=== PATIENT | male | born 1940 | race Caucasian/White ===

== ENCOUNTER 2017-02-25 15:47 | Inpatient (IN) | payer OTHER ==
[~2017-02-25] VITALS: Ht 185.4 cm; Wt 87.6 kg
--- NOTE | ~2017-02-25 | CNG ---
[facility] [place] [address] CYTO-NONGYN REPORT PROCEDURE Name: RUSLAN TERRELL Room #: 205-P ADM IN M.R.#: [id number] Admission: 02/25/17 Date of : 42 Discharge: Report #: [id number] Path Case #: [id number] CYTOPATHOLOGY REPORT COLLECTION DATE: 02/27/2017 RECEIVED DATE: 02/27/2017 SUBMITTING PHYS: Dr. Jamari Brady OTHER PHYS: CLINICAL HISTORY: SOA; CHF; feet swelling; low 02; Pleural Effusion SPECIMEN(S) RECEIVED: A.Pleural fluid * * * * * * * * * * * * FINAL DIAGNOSIS: A. Pleural fluid: - No malignant epithelial cells identified. Paucicellular specimen with rare mesothelial cells and occasional scattered lymphocytes identified. PATHOLOGIST: Nadya Amaro M.D. REPORT ELECTRONICALLY SIGNED BY: Nadya Amaro M.D. DATE/TIME: 02/28/2017 13:20 * * * * * * * * * * * * GROSS PATHOLOGY: A. Pleural fluid: The specimen is submitted unfixed, labeled "Dedrickgurindercaro Ruslan Christopher". Received by the Cytology Department is 10 mL of clear yellow fluid. One ThinPrep slide and a cell block were prepared. (mm 02.27.2017) DRY CHAIN OFFBEARER(S): Shanon Grimm, CT(ASCP), IAC INITIAL CPT CODE(S): A; 62380, 20551 Professional services performed by [facility] at [facility] [address], [place] [address] Technical services performed by [facility] at [address] [place] [address]., [address], [place] [address]. [facility] [address] [place] [address], [facility] [place] [address] [place], [place] [address] [place] [address] [place] [address] CYTO-NONGYN REPORT PROCEDURE Name: RUSLAN TERRELL Room #: 205-P ADM IN M.R.#: [id number] Admission: 02/25/17 Date of : 42 Discharge: Report #: [id number] Path Case #: [id number] PHONE: [phone] DIRECTOR: Santos Hester M.D. * * * END OF REPORT * * *
--- NOTE | ~2017-02-25 | D ---
[facility] [place] [address] DISCHARGE SUMMARY Name: ANGELIA TERRELL Room #: 205-P [facility] IN M.R.#: [id number] Admission: 02/25/17 Attend Phys: Jamari Brady MD Discharge: 03/03/17 Date of : 42 Report #: [id number] THIS REPORT FOR: //name// CC: Jamari Brady DATE OF SERVICE: 03/03/2017 DATE OF ADMISSION: 02/25/2017. DATE OF DISCHARGE: 03/03/2017. ADMIT DIAGNOSIS: Acute congestive heart failure. DISCHARGE DIAGNOSES: 1. Vqaqa-qz-gsuzozm congestive heart failure. 2. Ischemic cardiomyopathy. 3. Bilateral pulmonary infiltrates with loculated effusions, status post thoracentesis on multiple occasions. 4. Acute kidney injury with chronic kidney disease. 5. Diabetes mellitus type 2. 6. Paroxysmal atrial fibrillation. 7. Prior paroxysmal ventricular tachycardia with a biventricular implantable cardioverter-defibrillator device. 8. Chronic anemia. 9. Hypothyroidism. 10. History of colon cancer. HOSPITAL COURSE: The patient is a 76-year-old male who is new to me who has been admitted with increasing shortness of air. He is moving up from [place] and has been having these problems for a long time that have been worsening lately, however. He is admitted per consultation from cardiology and pulmonology. He had thoracentesis on multiple occasions to remove several liters of fluid from his lungs. He did improve with aeration with that. We adjusted his cardiac meds and diuretics. He did get a little bit dry, hence we backed off from the diuresis. After discussion with Dr. Briscoe, we decided not to continue with BARTOLO inhibitors as he must have had trouble with these in the past as he is hypotensive with that. DISCHARGE MEDICATIONS: See discharge med list. DISPOSITION: He will be discharged home on home O2. FOLLOWUP: He will see me in 3 days. DIET: He will have a low-sodium diet. [address] [address] DISCHARGE SUMMARY Name: ANGELIA TERRELL LUIS MIGUEL Room #: 205-P [facility] IN M.R.#: [id number] Admission: 02/25/17 Attend Phys: Jamari Brady MD Discharge: 03/03/17 Date of : 42 Report #: [id number] ACTIVITY: As tolerated. By: 0829 11 Jamari Brady MD /nt
--- NOTE | ~2017-02-25 | EKG ---
[address] [place] [address] ELECTROCARDIOGRAM REPORT Name: LESLIESOPHIAANGELIA DEAN Room #: 205-P ADM IN M.R.#: [id number] Admission: 02/25/17 Attend Phys: Jamari Brady MD Discharge: Date of : 42 Report #: [id number] THIS REPORT FOR: //name// [facility] ED Test Date: 2017-02-25 Test Time: 17:09:57 Pat Name: ANGELIA TERRELL Department: Room: 205 Gender: M Refrigerating Technician: MZOOK : 1940 Requested By: Aman Muller Order Number: [id number] MD: Toney Briscoe Measurements Intervals [place] Rate: 76 P: 120 AL: 151 QRS: 199 QRSD: 160 T: 6 QT: 463 QTc: 521 Interpretive Statements AV sequential biventricular pacing No further analysis attempted due to paced rhythm No previous ECG available for comparison Electronically Signed On 02-26-2017 8:47:29 CDT by Toney Briscoe [email or web address] <ELECTRONICALLY SIGNED> By: Toney Briscoe MD, [facility] 02/26/17 0847 1709 08 Toney Briscoe MD, FAC /EPI
--- NOTE | ~2017-02-25 | CNG ---
[facility] [place] [address] CYTO-NONGYN REPORT PROCEDURE Name: RUSLAN TERRELL Room #: 205-P [facility] IN M.R.#: [id number] Admission: 02/25/17 Date of : 42 Discharge: 03/03/17 Report #: [id number] Path Case #: [id number] CYTOPATHOLOGY REPORT COLLECTION DATE: 03/01/2017 RECEIVED DATE: 03/01/2017 SUBMITTING PHYS: Dr. Debora Styles OTHER PHYS: Dr. Jamari Brady CLINICAL HISTORY: SOA, feet swelling, Low O2 SAT'S. SPECIMEN(S) RECEIVED: A.Pleural fluid * * * * * * * * * * * * FINAL DIAGNOSIS: A. Pleural fluid: - No malignant cells identified. Rare mesothelial cells and many scattered lymphocytes identified. COMMENT: There are many scattered small lymphocytes identified. These do not appear histologically atypical; however, if a lymphoproliferative process is suspected, suggest flow studies. (SHA:csd; d/t: 03/04/2017) PATHOLOGIST: Cristian Blank M.D. REPORT ELECTRONICALLY SIGNED BY: Cristian Blank M.D. DATE/TIME: 03/04/2017 11:29 * * * * * * * * * * * * GROSS PATHOLOGY: A. Pleural fluid: The specimen is submitted unfixed, labeled "Ruslan Terrell". Received by the Cytology Department is 15 mL of cloudy yellow fluid. One ThinPrep slide and a cell block were prepared. (clt 4.) PATTERN CARRIER(S): PREETHI Mcduffie(ASCP) INITIAL CPT CODE(S): A; 55357, 91028 Professional services performed by [facility] at [facility] [address] [facility] , [place] [address] Technical services performed by [facility] at [address] [place] [address], [address], [place] [address]. [facility] [address] [place] [address] CYTO-NONGYN REPORT PROCEDURE Name: RUSLAN TERRELL Room #: 205-[facility] IN M.R.#: [id number] Admission: 02/25/17 Date of : 42 Discharge: 03/03/17 Report #: [id number] Path Case #: [id number] [facility] [address] [place] [address], [address] [place] [address] PHONE: [phone] DIRECTOR: Santos Hester M.D. * * * END OF REPORT * * *
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
--- NOTE | ~2017-02-25 | H ---
[facility] [place] [address] HISTORY AND PHYSICAL Name: ANGELIA TERRELL Room #: 205-P [facility] IN M.R.#: [id number] Admission: 02/25/17 Attend Phys: Jamari Brady MD Discharge: Date of : 42 Report #: [id number] THIS REPORT FOR: //name// CC: Jamari Brady DATE OF SERVICE: 02/26/2017 CHIEF COMPLAINT: Shortness of air. HISTORY OF PRESENT ILLNESS: The patient is a 76-year-old male, new to me, who presented with increasing shortness of breath for a week. He states that has been getting worse with activity and he is unable to lay flat. He does have a history of coronary artery disease and congestive heart failure that has been treated with thoracentesis and diuretics in the past. Most recently, he had a thoracentesis of over 2 liters. He states he has no new chest pain. PAST MEDICAL HISTORY: Significant for: 1. Congestive heart failure. 2. Coronary artery disease. 3. Cardiomyopathy. 4. Diabetes mellitus, non-insulin requiring. 5. He has an AICD. 6. He has a port in place for colorectal cancer. 7. Colorectal cancer 8. Hyperlipidemia. 9. Hypothyroidism. 10. BPH. MEDICATIONS: Lasix 80 mg a day and Coreg 3.125 mg b.i.d. ALLERGIES: CODEINE, CONTRAST, and DEMEROL. SOCIAL HISTORY: He does drink alcohol. He is a prior smoker. He lives independently. He lives in [place], but to [place] for frequently. REVIEW OF SYSTEMS: CONSTITUTIONAL: He is not aware of any fever or chills. HEENT: No headaches or visual changes. CHEST: He has the shortness of air, but no sputum production. CARDIAC: No chest pain. No palpation. GASTROINTESTINAL: No nausea, vomiting, diarrhea, or constipation. GENITOURINARY: No burning or frequency. EXTREMITIES: No new swelling or joint pain. SKIN: No rashes or wounds. NEUROLOGIC: No numbness or weakness. [facility] [address] [address] HISTORY AND PHYSICAL Name: ANGELIA TERRELL LUIS MIGUEL Room #: 205-P [facility] IN M.R.#: [id number] Admission: 02/25/17 Attend Phys: Jamari Brady MD Discharge: Date of : 42 Report #: [id number] PHYSICAL EXAMINATION: VITAL SIGNS: Blood pressure 108/74, pulse is 77, respiratory rate is 18, and O2 sat is 94% on 2 liters at the time of evaluation in the morning of 02/26. GENERAL: He is awake and alert, in no acute distress. HEENT: His mucous membranes are moist. NECK: Supple without adenopathy. Central venous pressure was increased to 10 cm. CHEST: Shows decreased breath sounds in the right, crackles in the left. CARDIOVASCULAR: He has a regular rate, regular rhythm, no S4. ABDOMEN: Soft, nondistended, nontender, no masses. Bowel sounds are active. EXTREMITIES: 3+ edema in both legs. Pulses are intact. NEUROLOGIC: Grossly motor and sensory. SKIN: No new rashes or wounds. He has sternotomy scars. LABORATORY DATA: EKG shows paced rhythm, rate of 76. Sodium 141, potassium 4.1, chloride 103, bicarb 32, BUN 20, creatinine 1.3, glucose 99, calcium 8.6. AST 18, ALT 16. Troponin less than 0.04. BNP 3242, total protein 7.3, albumin 2.8. WBCs 9.7, hemoglobin 10.0, hematocrit 29.6, platelet count 276, 82 segs, 1 band, 9 lymphs. Chest x-ray shows right side effusion and small and large left-sided effusion with basilar crackles. ASSESSMENT: 1. Congestive heart failure, acute on chronic systolic with pleural effusion. 2. Pleural effusion secondary to heart failure. 3. Coronary artery disease. 4. Diabetes mellitus. 5. History of colon cancer. PLAN: We will admit, start him on IV diuretics. Consult pulmonary and cardiology. Recommend thoracentesis for symptomatic relief. Place him on telemetry and monitor his electrolytes. <ELECTRONICALLY SIGNED> By: Jamari Brady MD 03/03/17 0844 0729 1000 Jamari Brady MD /nt
--- NOTE | ~2017-02-25 | 2DMMODE ---
[facility] [place] [address] 2 D/M-MODE ECHOCARDIOGRAM Name: ANGELIA TERRELL Room #: 205-P [facility] IN .R.#: [id number] Admission: 02/25/17 Attend Phys: Jamari Brady, Discharge: Date of : 42 Date of Service: 02/26/17 1721 Report #: [id number] THIS REPORT FOR: //name// APPROVED REPORT Study performed: 02/26/2017 12:19:25 EXAM: Comprehensive 2D, Doppler, and color-flow Echocardiogram Patient Location: Bedside Blood Pressure: 121/74 mmHg HR: 75 bpm Other Information Study Quality: Good Indications ICD: Diabetes CAD Remote aortic valve replacement with Bioprosthetic valve. CHF. 2D Dimensions LVEF(%): 26.95 (>50%) IVSd: 11.16 (7-11mm) LVOT Diam: 20.71 (18-24mm) LVDd: 56.26 mm PWd: 8.42 (7-11mm) Ascending Aorta: 26.18 mm LVDs: 49.12 (25-40mm) IVC: 14.00 mm Aortic Root: 30.28 mm Walker's LVEF: 26.95 % Volumes Left Atrial Volume (Systole) Single Plane 4CH: 84.49 mL Single Plane 2CH: 83.72 mL LA ESV Index: 43.00 mL/m2 Aortic Valve AoV Peak Phan.: 1.00 m/s AO Peak Gr.: 3.99 mmHg AO Mean Gr.: 2.08 mmHg LV Max P.17 mmHg LV Mean P.15 mmHg AO V2 VTI: 154.54 mm LV Max: 0.77 m/s MARLEY (VTI): 2.84 cm2 LV Mean: 0.50 m/s LV V1 VTI: 130.25 mm [facility] [place] [address] [address] 2 D/M-MODE ECHOCARDIOGRAM Name: ANGELIA TERRELL [place] Room #: 205-P [facility] IN .R.#: [id number] Admission: 02/25/17 Attend Phys: Jamari Brady, Discharge: Date of : 42 Date of Service: 02/26/17 1721 Report #: [id number] SV (LVOT): 43.84 mL Mitral Valve MV PHT: 35.32 ms MV E Max Phan.: 0.88 m/s E/A Ratio: 3.1 MV A Phan.: 0.28 m/s MV Decel. Time: 121.79 ms Tricuspid Valve TR Peak Phan.: 3.25 m/s RAP Estimate: 5.00 mmHg TR Peak Gr.: 42.20 mmHg Left Ventricle Left ventricle is borderline dilated. There is global hypokinesis of the left ventricle. There is akinesis in the posterior wall. There is akinesis in the inferior wall. There is normal left ventricular wall thickness. Left ventricular ejection fraction is moderately decreased. LVEF is 30-35%. Grade IV - fixed restrictive diastolic dysfunction. Right Ventricle The right ventricle is normal size. The right ventricular systolic function is normal. Atria Left atrium is dilated. Right atrium is dilated. A device lead is seen in the right atrium consistent with history. Aortic Valve The aortic valve is normal in structure. Bioprosthetic aortic valve is present. No aortic regurgitation is present. There is no aortic valvular stenosis. Mitral Valve The mitral valve is normal in structure. Trace mitral regurgitation. Tricuspid Valve The tricuspid valve is normal in structure. There is trace tricuspid regurgitation. The right atrial pressure is estimated at 5 mmHg. There is mild-moderate pulmonary hypertension. The estimated PAP was 47 mmHg. Pulmonic Valve The pulmonary valve is normal in structure. Trace pulmonic regurgitation. [facility] [address] [place] [address] 2 D/M-MODE ECHOCARDIOGRAM Name: ANGELIA TERRELL Room #: 205-P [facility] IN .R.#: [id number] Admission: 02/25/17 Attend Phys: Jamari Brady, Discharge: Date of : 42 Date of Service: 02/26/17 1721 Report #: [id number] Great Vessels The aortic root is normal in size. IVC is normal in size and collapses <50% with inspiration. Pericardium There is no pericardial effusion. <Conclusion> Left ventricle is borderline dilated. There is global hypokinesis of the left ventricle. There is akinesis in the posterior wall. There is akinesis in the inferior wall. LVEF is 30-35%. Left atrium is dilated. Right atrium is dilated. A device lead is seen in the right atrium consistent with history. Trace mitral regurgitation. There is trace tricuspid regurgitation. The right atrial pressure is estimated at 5 mmHg. There is mild-moderate pulmonary hypertension. The estimated PAP was 47 mmHg. Trace pulmonic regurgitation. <ELECTRONICALLY SIGNED> By: Jose Luis Ceja MD 02/26/17 172 20 20 Jose Luis Ceja MD /INF
[~2017-02-25 15:47] MED LIST: COREG3.125 MG PO; FLOMAX0.4 MG PO; GLUCOPHAGE XR500 MG PO; IRON325 PO; LASIX 40 MG TAB40 M2 PO; LEVOTHYROXIN0.112 M1 PO; LEVOTHYROXIN0.125 M1 PO; LIPITOR 20 MG T20 M1 PO; METFORMIN HCL500 MG PO; NITROGLYCERIN0.4 MG SUBLING; NORCO 5-325 TA1 EACH PO
[2017-02-25 16:07] VITALS: BP 108/74
[2017-02-25 17:56] LABS: HEMATOCRIT 29.6 % (42.0-52.0); MCH 27.4 pg (26.0-34.0); MCHC 33.8 g/dL (28.0-37.0); PLATELET COUNT 276 thou/uL (150-400); RBC 3.66 mil/uL (4.50-6.00); RDW 17.6 % (10.5-14.5); WBC 9.7 thou/uL (4.0-11.0)
[2017-02-25 17:58] LABS: MANUAL DIFF YES
[2017-02-25 18:02] LABS: ANION GAP 6 mmol/L (7-16); BUN 20 mg/dL (7-18); CALCIUM 8.6 mg/dL (8.5-10.1); CHLORIDE 103 mmol/L (98-107); CO2 32 mmol/L (21-32); CREATININE 1.3 mg/dL (0.7-1.3); GLUCOSE 99 mg/dL (74-106); POTASSIUM 4.1 mmol/L (3.5-5.1); SODIUM 141 mmol/L (136-145)
[2017-02-25 18:13] LABS: ALBUMIN 2.8 g/dL (3.4-5.0); ALKALINE PHOSPHATASE 70 U/L (46-116); NT-PRO BRAIN NAT PEPTIDE 3242 pg/mL (<300); SGOT 18 U/L (15-37); SGPT 16 U/L (30-65); TOTAL BILIRUBIN 0.5 mg/dL (<0.1-1.0); TOTAL PROTEIN 7.3 g/dL (6.4-8.2); TROPONIN-I < 0.04 ng/mL (<0.04-0.07)
[2017-02-25 18:26] LABS: ABSOLUTE NEUTROPHILS 8.1 thou/uL (1.4-8.2); TOTAL CELL COUNT 100
[2017-02-25 23:27] VITALS: BP 128/81
[2017-02-26 04:06] VITALS: BP 126/77
[2017-02-26 07:25] VITALS: BP 121/74
[2017-02-26 11:55] VITALS: BP 108/84
[2017-02-26 15:40] VITALS: BP 111/65
[2017-02-26 19:34] VITALS: BP 109/68
[2017-02-26 23:03] VITALS: BP 97/58
[2017-02-27 04:00] VITALS: BP 103/62
[2017-02-27 04:18] LABS: CALCIUM 8.3 mg/dL (8.5-10.1); CREATININE 1.7 mg/dL (0.7-1.3); POTASSIUM 4.5 mmol/L (3.5-5.1)
[2017-02-27 04:27] LABS: APTT 22.4 Seconds (24.5-32.8); PROTIME 10.5 Seconds (9.3-11.4)
[2017-02-27 08:25] VITALS: BP 109/67; BP 109/673
[2017-02-27 11:00] VITALS: BP 111/62
[2017-02-27 11:50] LABS: CLARITY HAZY; COLOR YELLOW; TOTAL VOLUME 50 mL
[2017-02-27 12:44] LABS: BF NUCLEATED CELLS 204; BF RBC 2408; MANUAL DIFF YES
[2017-02-27 14:27] LABS: BF NEUTROPHILS 1
[2017-02-27 14:28] LABS: BF MACROPHAGE 37
[2017-02-27 15:51] VITALS: BP 109/65
[2017-02-27 19:17] VITALS: BP 93/48
[2017-02-28 03:35] VITALS: BP 130/61
[2017-02-28 08:00] VITALS: BP 87/45
[2017-02-28 11:09] LABS: BODY FLUID ALBUMIN 1.6 g/dL (()); BODY FLUID AMYLASE 79 U/L (()); BODY FLUID GLUCOSE 133 mg/dL (()); BODY FLUID LDH 92 IU/L (())
[2017-02-28 20:06] VITALS: BP 84/54
[2017-02-28 23:31] VITALS: BP 96/60
[2017-03-01] VITALS (8 sets, daily range): BP systolic 92–146; BP diastolic 49–70
[2017-03-01 06:52] LABS: CALCIUM 8.2 mg/dL (8.5-10.1); POTASSIUM 4.6 mmol/L (3.5-5.1)
[2017-03-01 12:30] LABS: COLOR AMBER; TOTAL VOLUME 60 mL
[2017-03-01 12:31] LABS: CLARITY CLOUDY
[2017-03-01 13:11] LABS: BF NUCLEATED CELLS 948; BF RBC 5238
[2017-03-01 13:41] LABS: BF NEUTROPHILS 20
[2017-03-02 03:04] VITALS: BP 101/63
[2017-03-02 05:35] LABS: CALCIUM 8.6 mg/dL (8.5-10.1); CREATININE 1.9 mg/dL (0.7-1.3); POTASSIUM 4.8 mmol/L (3.5-5.1)
[2017-03-02 08:00] VITALS: BP 90/53
[2017-03-02 08:07] LABS: BODY FLUID ALBUMIN 1.7 g/dL (()); BODY FLUID AMYLASE 79 U/L (()); BODY FLUID GLUCOSE 127 mg/dL (()); BODY FLUID LDH 212 IU/L (()); BODY FLUID PROTEIN 3.2 g/dL (())
[2017-03-02] MEDS ORDERED: LISINOPRIL2.5 MG PO (08:45)
[2017-03-02] MEDS ORDERED: CARVEDILOL3.125 MG PO (08:45)
[2017-03-02] MEDS ORDERED: FLOMAX0.4 MG PO (08:45)
[2017-03-02] MEDS ORDERED: LEVOTHYROXIN0.125 M1 PO (08:46)
[2017-03-02 09:07] LABS: MANUAL DIFF YES
[2017-03-02 09:08] LABS: BF NUCLEATED CELLS 660; BF RBC 3869; CLARITY CLOUDY; COLOR ORANGE; TOTAL VOLUME 60 mL
[2017-03-02 11:06] LABS: BODY FLUID ALBUMIN 0.8 g/dL (()); BODY FLUID AMYLASE 41 U/L (()); BODY FLUID GLUCOSE 96 mg/dL (()); BODY FLUID LDH 83 IU/L (()); BODY FLUID PROTEIN 1.6 g/dL (())
[2017-03-02 12:00] VITALS: BP 121/65
[2017-03-02 13:59] LABS: BF NEUTROPHILS 0
[2017-03-02 14:00] LABS: BF COMMENTS 5; BF MACROPHAGE 0
[2017-03-02 15:54] VITALS: BP 82/50
[2017-03-02 19:05] VITALS: BP 95/56
[2017-03-03 00:10] VITALS: BP 98/63
[2017-03-03 04:33] VITALS: BP 78/43
[2017-03-03 07:40] VITALS: BP 87/52
[2017-03-03 11:17] LABS: HEMATOCRIT 27.1 % (42.0-52.0); HEMOGLOBIN 9.3 gm/dL (14.0-18.0); MCH 28.2 pg (26.0-34.0); MCHC 34.5 g/dL (28.0-37.0); MCV 81.8 fL (80.0-100.0); RBC 3.31 mil/uL (4.50-6.00); RDW 18.1 % (10.5-14.5); WBC 8.4 thou/uL (4.0-11.0)
[2017-03-03 11:20] VITALS: BP 98/60
[2017-03-03 11:32] LABS: CALCIUM 8.7 mg/dL (8.5-10.1); CREATININE 1.8 mg/dL (0.7-1.3); POTASSIUM 4.7 mmol/L (3.5-5.1)
[2017-03-03 13:07] VITALS: BP 146/58
== END 2017-03-03 15:50 | disposition home health service (06) | DRG 291 ==
LOC: ER 15:47 → 2N 18:33 → EROBS 18:33 → 2N 19:58
PROVIDERS: Family Medicine; Internal Medicine; Internal Medicine Pulmonary Disease; Physician Assistant
PROC: B5181ZA Fluoroscopy of Superior Vena Cava using Low Osmolar Contrast, Guidance (ICD-10-PCS; 2017-02-25)
PROC: 02HV33Z Insertion of Infusion Device into Superior Vena Cava, Percutaneous Approach (ICD-10-PCS; 2017-02-25)
PROC: 0W9B3ZZ Drainage of Left Pleural Cavity, Percutaneous Approach (ICD-10-PCS; principal; 2017-02-27)
PROC: 0W9B3ZZ Drainage of Left Pleural Cavity, Percutaneous Approach (ICD-10-PCS; 2017-03-02)
PROC: BB4BZZZ Ultrasonography of Pleura (ICD-10-PCS; 2017-03-02)
DX: I50.23 Acute on chronic systolic (congestive) heart failure (principal); J96.01 Acute respiratory failure with hypoxia; E43 Unspecified severe protein-calorie malnutrition; I47.2 Ventricular tachycardia; J81.1 Chronic pulmonary edema; N17.9 Acute kidney failure, unspecified; J90 Pleural effusion, not elsewhere classified; I48.0 Paroxysmal atrial fibrillation; E03.9 Hypothyroidism, unspecified; D53.9 Nutritional anemia, unspecified; I25.5 Ischemic cardiomyopathy; E11.22 Type 2 diabetes mellitus with diabetic chronic kidney disease; N18.9 Chronic kidney disease, unspecified; E78.5 Hyperlipidemia, unspecified; I25.10 Atherosclerotic heart disease of native coronary artery without angina pectoris; N40.0 Benign prostatic hyperplasia without lower urinary tract symptoms; J44.9 Chronic obstructive pulmonary disease, unspecified; Z95.1 Presence of aortocoronary bypass graft; Z95.810 Presence of automatic (implantable) cardiac defibrillator; Z90.49 Acquired absence of other specified parts of digestive tract; Z88.6 Allergy status to analgesic agent; Z91.041 Radiographic dye allergy status; Z95.2 Presence of prosthetic heart valve; Z85.038 Personal history of other malignant neoplasm of large intestine; Z87.891 Personal history of nicotine dependence; Z85.048 Personal history of other malignant neoplasm of rectum, rectosigmoid junction, and anus; Z79.899 Other long term (current) drug therapy; Z91.14 Patient's other noncompliance with medication regimen; Z92.21 Personal history of antineoplastic chemotherapy; Z23 Encounter for immunization; Z82.49 Family history of ischemic heart disease and other diseases of the circulatory system; Z68.25 Body mass index [BMI] 25.0-25.9, adult
CPT/HCPCS: 10194

== ENCOUNTER 2017-03-18 10:28 | Inpatient (IN) | payer OTHER ==
[~2017-03-18] VITALS: Ht 185.4 cm; Wt 83.1 kg
--- NOTE | ~2017-03-18 | HC ---
[facility] [place] [address] CONSULTATION Name: ANGELIA TERRELL Room #: 439-P ADM IN M.R.#: [id number] Admission: 03/18/17 Attend Phys: Jamari Brady MD Discharge: Date of : 42 Report #: [id number] THIS REPORT FOR: //name// CC: Jamari Brady MD REFERRING PHYSICIAN: Dr. Jamari Brady. REASON FOR REFERRAL: Dyspnea and recurrent pleural effusion. HISTORY OF PRESENT ILLNESS: The patient is a 76-year-old white male who presents to the Emergency Room with progressive dyspnea, lower extremity edema. Chest x-ray shows bilateral pleural effusion. A pulmonary consultation was requested. The patient has known ischemic cardiomyopathy. His ejection fraction in the past is said to be around 20%. He states that he has been dealing with heart failure for a number of years. About a year ago, he said he underwent a thoracentesis on the right side. He has not required another thoracentesis until 2 weeks ago when a thoracentesis was done on both of his lung. About a year ago, he was also treated for colon cancer. He underwent 6 months of anticoagulant therapy in [place], [place]. He states following treatment with chemotherapy for 6 months, he was cancer free. Otherwise, denies any fever, night sweats or chills, chest pain or productive cough. PAST MEDICAL HISTORY: Notable for history of tobacco use about 30 years, quitting in 1987, he has never been told he had a chronic lung disease, coronary artery disease with severe ischemic cardiomyopathy, ejection fraction is around 20%, coronary bypass surgery in 1987, diabetes mellitus type 2, status post AICD placement in 2011, status post bioprosthetic mitral valve replacement in 1967. PAST SURGICAL HISTORY: As mentioned above including cervical laminectomy, cholecystectomy, left hand surgery, prior back surgery. ALLERGIES: CODEINE, which causes pruritus, CONTRACT reactions not specified, TRAMADOL causes pruritus, MEPERIDINE causes vertigo. HOME MEDICATIONS: Include Flomax, Coreg, Synthroid, Lasix. FAMILY HISTORY: Notable for myocardial infarction in mother. SOCIAL HISTORY: He is single, but does have a fiancee who lives in town. He [facility] [address] [place] [address] CONSULTATION Name: ANGELIA TERRELL Room #: 439-P [facility]#: [id number] Admission: 03/18/17 Attend Phys: Jamari Brady MD Discharge: Date of : 41 Report #: [id number] has primarily lived in [place], [place]. Tobacco history: As mentioned above. He drinks socially. 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 REVIEW OF SYSTEMS: As mentioned above, otherwise 10-point system review negative. PHYSICAL EXAMINATION: GENERAL: He is awake, alert, in no apparent distress. VITAL SIGNS: Temperature is 98 degrees Fahrenheit, pulse is 71, respiratory rate is 20, blood pressure 134/70 mmHg, saturation 98%. HEENT: Unremarkable. NECK: Supple, without any lymphadenopathy or thyromegaly. CHEST: Breath sounds are good, but decreased in the bases. No rales or wheezes. CARDIOVASCULAR: Heart sounds are distant, but no obvious murmurs or gallop. Pulses are 2+/4+ bilaterally. ABDOMEN: Soft, nontender, no organomegaly or masses felt. GENITOURINARY: Deferred. RECTAL: Deferred. EXTREMITIES: There is no cyanosis or clubbing, but remarkable 2/4+ bilateral pretibial edema. LABORATORY DATA: Portable chest x-ray shows bilateral pleural effusion, felt to be mild bilaterally with atelectasis. CT chest from 2 weeks ago was also reviewed. The pleural fluid on the right appears to be mild and loculated. There is small pleural effusion on the left. Electrolytes: Sodium 140, potassium 3.6, chloride 105, CO2 of 29, BUN is 24, creatinine is 1.3. WBC 7900, hemoglobin is 8.4, platelets normal. IMPRESSION: 1. Recurrent bilateral pleural effusion in this 76-year-old white male. According to the patient, he has undergone two thoracentesis, first time over a year ago and the second one done [address] chest as mentioned above. Pleural fluid on the right shows some evidence of loculation, pleural fluid on the left appears to be free-flowing. The chest x-ray performed today shows mild pleural effusion. 2. Coronary artery disease with severe ischemic cardiomyopathy, chronic lower extremity edema. 3. Colon cancer diagnosed about a year ago, status post chemotherapy. 4. Status post bioprosthetic mitral valve replacement. 5. Chronic kidney disease, baseline creatinine appears to be around 1.4-1.9. RECOMMENDATION: We will hold off on thoracentesis for now. We will allow for medical management for his heart failure. If his pleural fluid worsens, will consider repeating thoracentesis. If his frequency of thoracentesis increases then one will consider placing a PleurX catheter. [facility] [address] [place] [address] CONSULTATION Name: ANGELIA TERRELL Room #: 439-P ADM IN M.R.#: [id number] Admission: 03/18/17 Attend Phys: Jamari Brady MD Discharge: Date of : 41 Report #: [id number] The patient is felt to have COPD. A baseline pulmonary function will be helpful. At this time, he does not have obvious evidence of exacerbation. We will use bronchodilators p.r.n. Thank you for this consultation. <ELECTRONICALLY SIGNED> By: Bakari Cabello MD 03/19/17 1308 1725 0211 Bakari Cabello MD /nt
--- NOTE | ~2017-03-18 | EKG ---
[address] [place] [address] ELECTROCARDIOGRAM REPORT Name: ANGELIA TERRELL Room #: 439-P ADM IN M.R.#: [id number] Admission: 03/18/17 Attend Phys: Jamari Brady MD Discharge: Date of : 41 Report #: [id number] THIS REPORT FOR: //name// 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 03/19/17 0854 1053 1053 Toney Briscoe MD, [facility] /EPI
--- NOTE | ~2017-03-18 | H ---
[facility] [place] [address] HISTORY AND PHYSICAL Name: ANGELIA TERRELL Room #: 439-P ADM IN M.R.#: [id number] Admission: 03/18/17 Attend Phys: Jamari Brady MD Discharge: Date of : 41 Report #: [id number] THIS REPORT FOR: //name// CC: Jamari Brady DATE OF SERVICE: 03/18/2017 CHIEF COMPLAINT: Increasing dyspnea. HISTORY OF PRESENT ILLNESS: The patient is a 76-year-old male, recently started seeing me, who reports has been having increasing shortness of breath for the past several days. He was just hospitalized about 2 weeks ago for CHF and pleural effusions and was treated with thoracentesis on multiple occasions and diuresis. He states he did well, when I saw him in the clinic last week, he was doing well. Within the last few days, he started having some increasing shortness of air. He cannot lay flat. He cannot walk very long. He does use oxygen at home. He states he has not had any fevers or chills. No changes in his diet. No changes in his medicines. He cannot explain why he is more short of breath. He also has more swelling. PAST MEDICAL HISTORY: Significant for: 1. Congestive heart failure with cardiomyopathy, with EF of 20%. 2. Coronary artery disease, bypass in 1987. 3. AICD in 2011. 4. Non-insulin dependent diabetes mellitus. 5. Chronic obstructive pulmonary disease with prior smoking. 6. BPH. 7. Hypothyroidism. MEDICATIONS: Tamsulosin 0.4 mg a day, Coreg 3.125 mg b.i.d., Synthroid 125 mcg a day. ALLERGIES: CODEINE, CONTRAST DYE, and TRAMADOL. SOCIAL HISTORY: He is a prior smoker, drinks alcohol occasionally. No recreational drugs. REVIEW OF SYSTEMS: CONSTITUTIONAL: No fevers or chills. HEENT: No headaches or visual changes. CHEST: Shortness of air as above. No chest pain, no cough or sputum production. GASTROINTESTINAL: No nausea, vomiting, diarrhea, or constipation. GENITOURINARY: No burning or frequency. EXTREMITIES: He does have swelling. No new joint pain. SKIN: No new rashes or wounds. [address] [address] HISTORY AND PHYSICAL Name: ANGELIA TERRELL LUIS MIGUEL Room #: 439-P ADM IN M.R.#: [id number] Admission: 03/18/17 Attend Phys: Jamari Brady MD Discharge: Date of : 41 Report #: [id number] NEUROLOGIC: No new numbness or weakness. PHYSICAL EXAMINATION: VITAL SIGNS: Blood pressure 111/56, pulse is 89, respiratory rate is 18, O2 sats 80% on 3 liters. GENERAL: The patient is awake, alert, and very pleasant male, and very conversive, does not appear short of breath. HEENT: His mucous membranes are moist. NECK: Supple with increased central venous pressure of 12 cm of water. There are no bruits, no adenopathy, or no thyromegaly. CHEST: Shows decreased breath sounds in the left and crackles on the right. CARDIOVASCULAR: He has a regular rhythm with no murmur, no S4. ABDOMEN: Soft, nondistended, nontender, and no masses. Bowel sounds are active. EXTREMITIES: Show 3+ edema bilaterally. Pulses are intact. Cap refill was less than 2 seconds. There was no wounds or rashes. He has no focal numbness or weakness. EKG shows paced rhythm of 66. LABORATORY DATA: Sodium of 140, potassium of 3.6, chloride of 105, bicarbonate 29, BUN 24, creatinine 1.3, glucose 127, calcium 7.9. Troponin less than 0.04. BNP 5527. WBC 7.9, hemoglobin 8.4, hematocrit 24.0, platelet count 263. 77 segs, 11 lymphs. Chest x-ray shows lower lobe atelectasis and effusion. ASSESSMENT: 1. Congestive heart failure, acute systolic on chronic. 2. Pleural effusion. 3. Chronic obstructive pulmonary disease. 4. Cardiomyopathy. PLAN: We will admit. Give IV Lasix. Consult Cardiology. Consult pulmonary for the effusion thoracentesis. His creatinine is 1.3, and should tolerate diuresis at this time. I do not see any source of infection, has been triggered here. I do not think he has had any ischemia. His troponin was normal. I am not sure, if this has been dietary or medicine indiscretion, but we will try to figure it out more as we progress. This just may be a simple matter of bad cardiac output. By: [id number] 1439 Jamari Brady MD /nt
[2017-03-18 10:28] VITALS: BP 111/56
[~2017-03-18 10:28] MED LIST changes: +CARVEDILOL3.125 MG PO; +LISINOPRIL2.5 MG PO
[2017-03-18] MEDS ORDERED: LASIX 40 MG TAB40 M2 PO (10:37)
[2017-03-18 11:13] LABS: ABSOLUTE NEUTROPHILS 6.1 thou/uL (1.4-8.2); BASOPHILS 0.8 % (0.0-2.0); EOSINOPHILS 3.7 % (0.0-3.0); HEMOGLOBIN 8.4 gm/dL (14.0-18.0); LYMPHOCYTES 11.1 % (24.0-44.0); MCH 27.9 pg (26.0-34.0); MCHC 34.8 g/dL (28.0-37.0); MCV 80.1 fL (80.0-100.0); MONOCYTES 7.1 % (1.0-8.0); PLATELET COUNT 263 thou/uL (150-400); POLYS 77.3 % (36.0-66.0); RDW 17.5 % (10.5-14.5); WBC 7.9 thou/uL (4.0-11.0)
[2017-03-18 11:14] LABS: MANUAL DIFF NO
[2017-03-18 11:21] LABS: ANION GAP 6 mmol/L (7-16); BUN 24 mg/dL (7-18); CALCIUM 7.9 mg/dL (8.5-10.1); CHLORIDE 105 mmol/L (98-107); CO2 29 mmol/L (21-32); CREATININE 1.3 mg/dL (0.7-1.3); GLUCOSE 127 mg/dL (74-106); POTASSIUM 3.6 mmol/L (3.5-5.1); SODIUM 140 mmol/L (136-145)
[2017-03-18 11:34] LABS: NT-PRO BRAIN NAT PEPTIDE 5527 pg/mL (<300); TROPONIN-I < 0.04 ng/mL (<0.04-0.07)
[2017-03-18 13:07] LABS: % SATURATION 25 % (20-39); IRON 60 ug/dL (65-175); TIBC 244 ug/dL (250-450); UIBC 184 ug/dL
[2017-03-18 13:10] VITALS: BP 134/71
[2017-03-18 13:50] VITALS: BP 113/67
[2017-03-18 13:58] LABS: URINE BILIRUBIN NEGATIVE (Negative); URINE BLOOD TRACE (Negative); URINE COLOR YELLOW; URINE GLUCOSE-RANDOM* NEGATIVE (Negative); URINE KETONES NEGATIVE (Negative); URINE LEUKOCYTES-REFLEX NEGATIVE (Negative); URINE PROTEIN (DIPSTICK) 1+ (Negative); URINE UROBILINOGEN 0.2 E.U./dl (0.2-1.0)
[2017-03-18 14:10] LABS: CASTS None Seen /LPF (None Seen); CRYSTALS None Seen /LPF (None Seen); SQUAMOUS None Seen /LPF (0-3); URINE RBC 0-2 Rare /HPF (0-2); URINE WBC-REFLEX None Seen /HPF (0-5)
[2017-03-18 16:00] VITALS: BP 134/71
[2017-03-18 20:00] VITALS: BP 119/66
[2017-03-19 00:45] VITALS: BP 94/48
[2017-03-19 04:10] VITALS: BP 104/56
[2017-03-19 05:47] LABS: HEMOGLOBIN 8.3 gm/dL (14.0-18.0); MCH 27.9 pg (26.0-34.0); MCHC 34.6 g/dL (28.0-37.0); MCV 80.7 fL (80.0-100.0); RBC 2.97 mil/uL (4.50-6.00); WBC 7.1 thou/uL (4.0-11.0)
[2017-03-19 06:04] LABS: CALCIUM 8.3 mg/dL (8.5-10.1); CREATININE 1.4 mg/dL (0.7-1.3)
[2017-03-19 06:29] LABS: POTASSIUM 4.9 mmol/L (3.5-5.1)
[2017-03-19 07:32] VITALS: BP 116/63
[2017-03-19 12:18] VITALS: BP 104/54
[2017-03-19 15:54] VITALS: BP 91/45
[2017-03-19 19:26] VITALS: BP 102/51
[2017-03-20 03:49] VITALS: BP 114/55
[2017-03-20 05:43] LABS: HEMATOCRIT 24.1 % (42.0-52.0); HEMOGLOBIN 8.4 gm/dL (14.0-18.0); MCH 27.7 pg (26.0-34.0); MCHC 34.7 g/dL (28.0-37.0); RBC 3.01 mil/uL (4.50-6.00); RDW 17.9 % (10.5-14.5); WBC 6.4 thou/uL (4.0-11.0)
[2017-03-20 05:59] LABS: CALCIUM 8.1 mg/dL (8.5-10.1); CREATININE 1.5 mg/dL (0.7-1.3); POTASSIUM 4.3 mmol/L (3.5-5.1)
[2017-03-20] MEDS ORDERED: METOLAZONE 2.52.5 M1 PO (08:03)
[2017-03-20] MEDS ORDERED: LASIX 80 MG TAB80 MG PO (08:04)
[2017-03-20 08:12] VITALS: BP 114/62
[2017-03-20] MEDS ORDERED: ASPIR 8181 MG PO (08:49)
[2017-03-20 09:23] VITALS: BP 114/62
== END 2017-03-20 10:46 | disposition home or self-care (01) | DRG 291 ==
LOC: ER 10:28 → 4S 12:44 → EROBS 12:44 → 4S 13:52
PROVIDERS: Family Medicine; Nurse Practitioner Family
DX: I50.23 Acute on chronic systolic (congestive) heart failure (principal); J96.20 Acute and chronic respiratory failure, unspecified whether with hypoxia or hypercapnia; J90 Pleural effusion, not elsewhere classified; I47.2 Ventricular tachycardia; I25.5 Ischemic cardiomyopathy; I25.10 Atherosclerotic heart disease of native coronary artery without angina pectoris; N40.0 Benign prostatic hyperplasia without lower urinary tract symptoms; E03.9 Hypothyroidism, unspecified; E11.22 Type 2 diabetes mellitus with diabetic chronic kidney disease; N18.9 Chronic kidney disease, unspecified; J44.9 Chronic obstructive pulmonary disease, unspecified; D50.9 Iron deficiency anemia, unspecified; I48.0 Paroxysmal atrial fibrillation; I27.2 Other secondary pulmonary hypertension; Z79.82 Long term (current) use of aspirin; Z95.810 Presence of automatic (implantable) cardiac defibrillator; Z90.49 Acquired absence of other specified parts of digestive tract; Z95.1 Presence of aortocoronary bypass graft; Z88.6 Allergy status to analgesic agent; Z91.041 Radiographic dye allergy status; Z87.891 Personal history of nicotine dependence; Z85.038 Personal history of other malignant neoplasm of large intestine; Z95.2 Presence of prosthetic heart valve; Z82.49 Family history of ischemic heart disease and other diseases of the circulatory system; Z79.899 Other long term (current) drug therapy
CPT/HCPCS: 10100; 10195

== ENCOUNTER → 2017-07-26 | Outpatient (CLI) | payer OTHER ==
[~2017-07-26] VITALS: Ht 185.4 cm; Wt 85.7 kg
[~2017-07-26] MED LIST changes: +ALEVE220 MG PO; +ASPIR 8181 MG PO; +LASIX 80 MG TAB80 MG PO; +METOLAZONE 2.52.5 M1 PO; +NORCO 10-325 T1 EACH PO; +PROSCAR 5MG TABL5 MG PO; +PROTONIX40 M1 PO
--- NOTE | ~2017-07-26 | HPC ---
[facility] [address] [place] [address] PAIN MANAGEMENT CONSULTATION Name: ANGELIA TERRELL [facility] [id number] Admission: 07/26/17 Attend Phys: Jose Manuel Gabriel DO Discharge: Date of : 41 Report #: [id number] THIS REPORT FOR: //name// CC: Jamari Gabriel The patient is a 77-year-old gentleman seen in consultation at the request of Dr. Brady for evaluation of pain in left hip, posterior thigh and lateral calf to foot. The patient notes pain has been present for the past 2-3 months. He uses a cane intermittently to assist with ambulation. He has subjective weakness and paresthesia down to the foot. Denies bowel or bladder continence changes. Notes Aleve and hydrocodone "take the edge off." Notes pain is exacerbated with any and all activity. Describes continuous, steady, constant, burning, shooting, pounding, sharp, stabbing pain, rates anywhere from 1 to 10 on a VAS, averaging his pain a 9 on a VAS today. REVIEW OF SYSTEMS: Complete review of systems is attached to the chart and was gone over with the patient. He is unclear on his marital status, though he is seen in the company of a long-term significant other. Does not drink alcohol to excess. Does not currently use tobacco products. History of cjw-hrsvuuo-amaopsuws diabetes, on no medication for same. History of mitral valve replacement in 1967, coronary artery bypass graft surgery in 1987. COPD requiring O2 for the past 1-2 years. Hypothyroid for which he uses levothyroxine. Gastroesophageal reflux treated with pantoprazole. History of colon cancer, status post colon resection in 2014, status post 6 months of chemotherapy. Benign prostatic hypertrophy for which he uses tamsulosin. Does have some chronic renal insufficiency. BUN and creatinine are 36 and 1.6 respectively yielding an eGFR of 42. Surgery includes the aforementioned mitral valve replacement and coronary artery bypass graft surgery. Colon resection, cholecystectomy, and he did have back surgery in 1987 for axial back pain with significant improvement of symptoms. The patient is retired for 3 years. Pain impact score, however, is quite high, averaging 60/70. PHYSICAL EXAMINATION: Reveals a 6 feet 1 inch, 186-pound gentleman, BMI is 24.9 kg/m2. Blood pressure is 115/68, pulse 83, respirations 16. Cranial nerves 2-12 are grossly intact. Pupils are equal and reactive to light and accommodation. Extraocular muscles are intact. He is alert and oriented to person, place and time, judged to be a reasonable historian. Heart is regular and rhythmical with a subtle murmur. He is oxygen dependent. Lung sounds are distant. Has thoracic kyphosis, markedly antalgic gait, using a cane. Abdominal exam is unremarkable, diffuse tenderness across the low back. Left leg shows significant decreased strength in all muscle groups tested. Right leg is a little stronger, perhaps 4/5; left leg is 3/5. Grossly positive straight [facility] [address] [place] [address] PAIN MANAGEMENT CONSULTATION Name: ANGELIA TERRELL Room #: REG CLDebbi Bach#: [id number] Admission: 07/26/17 Attend Phys: Jose Manuel Gabriel DO Discharge: Date of : 41 Report #: [id number] leg raise at 30 degrees on the left. ASSESSMENT: Symptomatic lumbar radiculopathy with a left L4 radicular pain pattern in a gentleman intolerant of nonsteroidal anti-inflammatory agents due to chronic renal insufficiency. Status post lumbar decompressive laminectomy. Has failed conservative therapy for the last 2-3 months. RECOMMENDATION: Left L4-L5 transforaminal epidural injection today, follow up in 3-4 weeks for reevaluation. If symptoms are not significantly improved, we will need MRI of the lumbar spine, typically status post decompressive laminectomy, we do this with and without contrast; however, given eGFR measured at 42, contrast may well be contraindicated. Thank you for allowing me to participate in the patient's care. I will keep you abreast of his progress. PROCEDURE: Transforaminal epidural injection under fluoroscopy. PROCEDURE NOTE: After both written and informed consent was obtained including risk of spinal cord damage, infection, increased pain and paralysis, the patient agreed to proceed. The patient was taken to the fluoroscopy suite, placed in a prone position with appropriate abdominal bolstering. After sterile prep with ChloraPrep and sterile drape, a skin wheal with 1% Xylocaine was raised. A 22 gauge 4-1/2 inch epidural Tuohy needle was inserted. From an oblique approach into the posterior-superior aspect of the left L4-L5 neural foramen with continuous pressure on the glass syringe plunger for loss of resistance. Glass syringe was filled with 2 cc of 0.1 Xylocaine. The glass loss of resistance syringe was removed. A low volume extension tubing was connected, negative aspiration was accomplished for cerebrospinal fluid or blood. 1 mL of Omnipaque was injected which showed spread both within the epidural space and laterally along the nerve root. This was followed with 80 mg of triamcinolone plus 1 mL of 1.5% preservative-free Xylocaine. Needle was partially withdrawn, 0.5 mL of Xylocaine was injected to clear the needle and the needle was removed. The area was cleansed, band-aid was applied. The patient was allowed to ambulate to the recovery room, discharged in good and stable condition. By: 1232 2116 Jose Manuel Gabriel DO /nt
[2017-07-26 13:32] VITALS: BP 115/68
== END ==
LOC: PAIN 12:28
DX: M54.16 Radiculopathy, lumbar region (principal); N18.9 Chronic kidney disease, unspecified; I10 Essential (primary) hypertension; I50.9 Heart failure, unspecified; Z91.041 Radiographic dye allergy status; Z88.5 Allergy status to narcotic agent; Z88.8 Allergy status to other drugs, medicaments and biological substances; Z86.2 Personal history of diseases of the blood and blood-forming organs and certain disorders involving the immune mechanism; Z79.899 Other long term (current) drug therapy; Z98.890 Other specified postprocedural states

== ENCOUNTER → 2017-08-07 | Outpatient (CLI) | payer OTHER ==
[~2017-08-07] VITALS: Ht 185.4 cm; Wt 84.4 kg
[~2017-08-07] MED LIST changes: +TYLENOL325 MG PO
--- NOTE | ~2017-08-07 | P ---
[facility] [place] [address] PROCEDURE REPORT Name: XANDERANGELIA BOLANOS [facility] [id number] Admission: 08/07/17 Attend Phys: Vinicius Orr Discharge: Date of : 41 Report #: [id number] THIS REPORT FOR: //name// CC: Vinicius Brady MD DATE OF SERVICE: 08/07/2017 PROCEDURE PERFORMED: Colonoscopy with biopsies. HISTORY OF PRESENT ILLNESS: The patient is a 77-year-old male with a history of colon cancer diagnosed apparently 2 years ago, status post resection. He also underwent chemotherapy. He denies any symptoms at this time. Plan is for repeat colonoscopy. DESCRIPTION OF PROCEDURE: The risks and benefits of the procedure were explained to the patient, those risks including but not limited to bleeding, perforation, the risk of sedation. He understood these risks and gave informed consent. Sedation was given using propofol per anesthesia. Next, a digital rectal exam was initially performed, which was normal. Next using a standard Fujinon colonoscope, the scope was placed in the patient's anus and advanced under direct vision into the right colon, at which point surgical anastomosis was noted. This was well healed and widely patent. I was able to advance the scope into the terminal ileum, which was normal. In the remaining ascending colon, a single 4-mm sessile polyp was noted, this was removed with cold forceps. The transverse colon was normal, descending colon normal. A few small scattered diverticula were noted in the sigmoid colon, two 3 mm sessile polyps also noted in the sigmoid colon, both removed with cold forceps. The rectal mucosa was normal. On retroflexion, no abnormalities were noted. The scope was then withdrawn and the procedure terminated. The patient tolerated the procedure well. IMPRESSION: 1. Three small colonic polyps. 2. Surgical anastomosis consistent with right hemicolectomy. 3. A few small scattered diverticula in the sigmoid colon. RECOMMENDATIONS: 1. Await biopsy results. 2. Repeat colonoscopy in [address] [address] PROCEDURE REPORT Name: ANGELIA TERRELL Room #: REG WHITNEY Bach#: [id number] Admission: 08/07/17 Attend Phys: Vinicius Orr Discharge: Date of : 41 Report #: [id number] Thank you for allowing me to participate in his care. <ELECTRONICALLY SIGNED> By: Vinicius Farrell MD 08/09/17 1151 0851 0859 Vinicius Farrell MD /nt
--- NOTE | ~2017-08-07 | S ---
[facility] [place] [address] SURGICAL PATH RPT PROCEDURE Name: RUSLAN TERRELL LUIS MIGUEL Room #: REG [facility].#: [id number] Admission: 08/07/17 Date of : 41 Discharge: Report #: [id number] Path Case #: [id number] PATHOLOGY REPORT COLLECTION DATE: 08/07/2017 RECEIVED DATE: 08/08/2017 SUBMITTING PHYS: Dr. Vinicius Farrell OTHER PHYS: Dr. Jamari Brady SPECIMEN(S) RECEIVED: A.Bx of polyp at ascending colon B.Bx at sigmoid colon x2 * * * * * * * * * * * * FINAL DIAGNOSIS: A. Colon, ascending, biopsy: - Tubular adenoma. - Negative for high grade dysplasia. B. Colon, sigmoid, biopsy: - Fragments of hyperplastic polyp. PATHOLOGIST: Ras Alfaro M.D. REPORT ELECTRONICALLY SIGNED BY: Ras Alfaro M.D. DATE/TIME: 08/09/2017 10:56 * * * * * * * * * * * * GROSS PATHOLOGY: A. Received in formalin labeled "Ruslan Gatito, polyp at ascending colon," is a segment of barker soft tissue measuring 0.4 cm in maximum dimension. The specimen is submitted entirely in cassette A1. B. Received in formalin labeled "Ruslan Dedrickregina, BX at sigmoid 2," are 4 segments of barker soft tissue measuring 1.4 x 0.2 x 0.2 cm in aggregate dimensions and ranging from 0.3 to 0.3 cm in maximum dimension. The specimen is submitted entirely in cassette B1. (TSD; 08/08/2017) CLINICAL HISTORY: Pre-OP DX: Hx of colon cancer Post-OP DX: Colon polyps, diverticulosis INITIAL CPT CODE(S): A; 11760 B; 25058 [facility] [address] [place] [address] SURGICAL PATH RPT PROCEDURE Name: RUSLAN TERRELL Room #: REG CL Isreal#: [id number] Admission: 08/07/17 Date of : 41 Discharge: Report #: [id number] Path Case #: [id number] [address] [facility] [place] [address] Technical [facility] performed by [facility] at [address] [place] [address], [facility] [address] [address]. [place] [address] PHONE: [phone] DIRECTOR: Santos Hester M.D. * * * END OF REPORT * * *
== END | disposition home or self-care (01) ==
LOC: GI 07:20
DX: Z08 Encounter for follow-up examination after completed treatment for malignant neoplasm (principal); Z87.19 Personal history of other diseases of the digestive system; D12.2 Benign neoplasm of ascending colon; D12.5 Benign neoplasm of sigmoid colon; K57.30 Diverticulosis of large intestine without perforation or abscess without bleeding; J44.9 Chronic obstructive pulmonary disease, unspecified; J43.9 Emphysema, unspecified; I10 Essential (primary) hypertension; Z95.1 Presence of aortocoronary bypass graft; K21.9 Gastro-esophageal reflux disease without esophagitis; E03.9 Hypothyroidism, unspecified; I48.91 Unspecified atrial fibrillation
CPT/HCPCS: 62110; 62900

== ENCOUNTER → 2017-08-22 | Outpatient (CLI) | payer OTHER ==
[~2017-08-22] VITALS: Ht 185.4 cm; Wt 85.8 kg
--- NOTE | ~2017-08-22 | HPC ---
[facility] [place] [address] PAIN MANAGEMENT CONSULTATION Name: JUAN CDIANNEANGELIA LUIS MIGUEL [facility] [id number] Admission: 08/22/17 Attend Phys: Jose Manuel Gabriel DO Discharge: Date of : 41 Report #: [id number] THIS REPORT FOR: //name// CC: Jamari Gabriel The patient is a 77-year-old gentleman, prior seen 07/26/2017 in consultation. The patient has symptomatic lumbar radiculopathy, myofascial pain, axial back pain, left low buttock and leg pain. The patient was given a left L3-L4 transforaminal epidural injection. He returns to pain clinic today noting that injection afforded 80% relief, but only for 1 day. Pain recurred, he rates it a 5 on VAS, burning, tingling, sharp pain exacerbated with walking and standing. Pain is actually fairly point tender in the left gluteal area, piriformis muscle, pain is exacerbated with standing; does experience occasional radicular pain down to the foot (lancinating electric "bolt"). PHYSICAL EXAMINATION: Shows a 77-year-old gentleman, BMI is 25 kg/m2. Vital signs are stable. The patient does have chronic renal issues with an EGFR of 42. Positive straight leg raise on the left with pain exacerbated with piriformis contraction and point tenderness over the gluteus charly and piriformis. ASSESSMENT: Lumbar radiculopathy, component of myofascial pain with piriformis muscle involvement piriformis syndrome. RECOMMENDATION: 1. Piriformis injection under fluoroscopy today. 2. Referral to physical therapy for left piriformis and gluteus myofascial mediated pain, request for home exercise regimen for stretch, relaxation of left gluteus and piriformis muscles. Follow up in 3 weeks for reevaluation. PROCEDURE NOTE: Left piriformis injection under fluoroscopy. PROCEDURE: After written informed consent was obtained, the patient was taken to the fluoroscopy suite and placed in prone position. After sterile prep and drape, skin wheal was raised. A 22-gauge stylet needle was placed to contact the inferior aspect of the left SI joint. Needle was then withdrawn, redirected inferior and placed approximately 1 cm deeper. Negative aspiration was accomplished. 1 mL of Omnipaque was injected, which showed spread within of the piriformis muscle, was followed with 40 mg triamcinolone plus 4 mL of 0.5% preservative-free bupivacaine. Needle was removed, the area was cleansed, Band-Aids applied. The patient was monitored for an appropriate period of time, discharged in good and stable condition. <ELECTRONICALLY SIGNED> By: Jose Manuel Gabriel DO 08/26/17 0840 1701 1627 Jose Manuel Gabriel DO /nt
[2017-08-22 14:28] VITALS: BP 94/62
== END | disposition home or self-care (01) ==
LOC: PAIN 08-09 07:52
DX: G57.02 Lesion of sciatic nerve, left lower limb (principal); M54.16 Radiculopathy, lumbar region; M79.1 Myalgia

== ENCOUNTER 2017-09-12 17:13 | Inpatient (IN) | payer OTHER ==
[~2017-09-12] VITALS: Ht 185.4 cm; Wt 81.2 kg
--- NOTE | ~2017-09-12 | EKG ---
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 : 1940 Requested By: Jamari Brady Order Number: [id number] MD: Toney Briscoe Measurements Intervals [place] Rate: 94 P: -3 NC: 151 QRS: 9 QRSD: 121 T: 210 QT: 436 QTc: 546 Interpretive Statements Atrial-sensed ventricular-paced complexes No further rhythm analysis attempted due to paced rhythm Left bundle branch block Compared to ECG 09/12/2017 17:35:23 Left bundle-branch block now present Electronically Signed On 09-15-2017 17:06:02 CDT by Toney Briscoe [email or web address] <ELECTRONICALLY SIGNED> By: Toney Briscoe MD, [facility] 09/15/17 1706 1028 1028 Toney Briscoe MD, [facility] /EPI
--- NOTE | ~2017-09-12 | EKG ---
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 : 1940 Requested By: Abdulkadir Sanz Order Number: [id number] MD: Toney Briscoe Measurements Intervals [place] Rate: 83 P: 79 NV: 141 QRS: 199 QRSD: 164 T: -22 QT: 433 QTc: 509 Interpretive Statements Ventricular-paced complexes No further analysis attempted due to paced rhythm Compared to ECG 09/15/2017 15:09:48 No significant changes Electronically Signed On 09-16-2017 8:52:53 CDT by Toney Briscoe [email or web address] <ELECTRONICALLY SIGNED> By: Toney Briscoe MD, [facility] 09/16/17 0852 0639 0639 Toney Briscoe MD, [facility] /EPI
--- NOTE | ~2017-09-12 | EKG ---
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 : 1940 Requested By: Abdulkadir Sanz Order Number: [id number] MD: Toney Briscoe Measurements Intervals [place] Rate: 92 P: 0 MO: 61 QRS: 179 QRSD: 173 T: -27 QT: 426 QTc: 528 Interpretive Statements Ventricular-paced complexes No further analysis attempted due to paced rhythm Compared to ECG 09/12/2017 17:35:23 No significant changes Electronically Signed On 09-15-2017 17:12:00 CDT by Toney Briscoe [email or web address] <ELECTRONICALLY SIGNED> By: Toney Briscoe MD, [facility] 09/15/17 1712 1509 1509 Toney Briscoe MD, [facility] /EPI
--- NOTE | ~2017-09-12 | EKG ---
[address] [address] ELECTROCARDIOGRAM REPORT Name: ANGELIA TERRELL Room #: 421-P ADM IN M.R.#: [id number] Admission: 09/12/17 Attend Phys: Jamari Brady MD Discharge: Date of : 42 Report #: [id number] THIS REPORT FOR: //name// [facility] Test Date: 2017-09-12 Test Time: 17:35:23 Pat Name: ANGELIA TERRELL Department: Room: [facility] Gender: M Sheather: MZOK : 1940 Requested By: Monique Brock Order Number: [id number] MD: Abdulkadir Sanz Measurements Intervals [place] Rate: 86 P: 126 CA: 162 QRS: 196 QRSD: 170 T: -9 QT: 475 QTc: 569 Interpretive Statements A-V dual-paced complexes No further analysis attempted due to paced rhythm Compared to ECG 03/18/2017 10:53:28 No significant changes Electronically Signed On 09-13-2017 8:21:12 CDT by Abdulkadir Sanz [email or web address] <ELECTRONICALLY SIGNED> By: Abdulkadir Sanz MD 09/13/17 0821 1735 1735 Abdulkadir Sanz MD /EPI
--- NOTE | ~2017-09-12 | HC ---
[facility] [place] [address] CONSULTATION Name: ANGELIA TERRELL Room #: 421-P ADM IN M.R.#: [id number] Admission: 09/12/17 Attend Phys: Jamari Brady MD Discharge: Date of : 42 Report #: [id number] THIS REPORT FOR: //name// CC: Toney Brady DATE OF SERVICE: 09/13/2017 REASON FOR CONSULTATION: Shortness of breath, cardiomyopathy. HISTORY OF PRESENT ILLNESS: The patient is a 77-year-old gentleman with a history of a remote bioprosthetic aortic valve replacement, coronary disease with his first myocardial infarction in 1987 followed by a 2-vessel bypass surgery. He has had 4 prior atrial fibrillation ablation procedures, most recently about 6 years ago, followed by placement of a biventricular defibrillator (Medtronic). His ejection fraction by an echocardiogram several months ago was in the 30%-35% range with biatrial enlargement and a pulmonary artery pressure of about 47 mmHg. He now presents with 3-4 days of increasing shortness of breath. He has noted low oxygen levels at home in the 80s. He denies fevers or chills. He denies chest heaviness or pressure. No symptoms to suggest recurrent atrial fibrillation nor have there been symptoms to suggest ICD discharge. ALLERGIES: Include DEMEROL, CODEINE, CONTRAST, TRAMADOL. MEDICATIONS: Include carvedilol 3.125 mg daily, iron, finasteride 5 mg daily, Lasix 80 mg daily, Neurontin 200 mg daily, levothyroxine 125 mcg daily, Protonix 40 mg daily, Flomax. PAST MEDICAL HISTORY: Medical records have been reviewed and are notable for 2-vessel bypass in 1987, remote aortic valve replacement, COPD on home oxygen, atrial fibrillation ablation, cataract excision, hypothyroidism, back surgery. SOCIAL HISTORY: He is a former smoker, quit in 1987. FAMILY HISTORY: Notable for premature coronary disease. REVIEW OF SYSTEMS: All systems negative except as that noted above. PHYSICAL EXAMINATION: GENERAL: A pleasant gentleman in no distress. VITAL SIGNS: Blood pressure is 90/50, heart rate of 90 and regular, temperature is 97.9 degrees. His weight is 179 pounds. HEENT: There are neither xanthelasma, subcutaneous xanthomata, oral mucosal or digital cyanosis or kyphoscoliosis present. [address] [address] CONSULTATION Name: ANGELIA TERRELL Room #: 421-P ADM IN M.R.#: [id number] Admission: 09/12/17 Attend Phys: Jamari Brady MD Discharge: Date of : 42 Report #: [id number] CHEST: Reveals diminished breath sounds at both bases. CARDIOVASCULAR: Regular rate and rhythm with normal S1 and S2. Soft systolic murmur at the base. ABDOMEN: Soft and nontender. EXTREMITIES: Reveal 1-2+ pitting edema. Radial pulses are 2+. NEUROLOGIC: Alert with a nonfocal exam. IMPRESSION: 1. Ischemic cardiomyopathy. 2. Tcdnc-dx-fkpgyju systolic heart failure, ejection fraction 30%-35%. 3. Moderate pulmonary hypertension; chronic obstructive pulmonary disease. 4. Diabetes. 5. Paroxysmal ventricular tachycardia with prior biventricular ICD. 6. Anemia, iron deficiency. 7. History of remote colon cancer. RECOMMENDATIONS: 1. Intravenous diuretic therapy. 2. Continued use of low-dose carvedilol. In the past, he has been intolerant to even tiny doses of BARTOLO or ARB therapy. 3. I counselled Dr. Sanz as his Medtronic device has reached URIAH. He does have an interest in MRI compatible device as he has required MRIs and has not been able to have them in the past. 4. Further thoughts will be forthcoming based on his evaluation. Thank you for asking me to participate in his care. <ELECTRONICALLY SIGNED> By: Toney Briscoe MD, FACC 09/16/17 0841 0712 0859 Toney Briscoe MD, FACC /nt
--- NOTE | ~2017-09-12 | 2DMMODE ---
[facility] [place] [employer] [place] [address] 2 D/M-MODE ECHOCARDIOGRAM Name: XANDERANGELIA LUIS MIGUEL Room #: 421-P ADM IN M.R.#: [id number] Admission: 09/12/17 Attend Phys: Jamari Brady, Discharge: Date of : 42 Date of Service: 09/13/17 1231 Report #: [id number] THIS REPORT FOR: //name// APPROVED REPORT Study performed: 09/13/2017 11:59:41 EXAM: Limited 2D, Doppler, and color-flow Echocardiogram Patient Location: Echo lab Room #: 421 Status: routine BSA: 2.03 HR: 98 bpm BP: 103/67 mmHg Rhythm: Pacemaker Other Information Study Quality: Adequate Indications Limited follow up echo for CHF, ICD, upcoming gen change. Hx: ISCM, CABG, AVR, COPD, AFIB 2D Dimensions LVEF(%): 25.38 (>50%) IVSd: 13.33 (7-11mm) LVDd: 55.52 mm PWd: 11.68 (7-11mm) LVDs: 48.93 (25-40mm) Walker's LVEF: 25.38 % Aortic Valve AoV Peak Phan.: 1.02 m/s AO Peak Gr.: 4.17 mmHg Tricuspid Valve TR Peak Phan.: 3.39 m/s RAP Estimate: 10.00 mmHg TR Peak Gr.: 45.90 mmHg PA Pressure: 56.00 mmHg Left Ventricle The left ventricle is normal size. There is normal left ventricular wall thickness. Left ventricular systolic function is moderate to severely decreased. LVEF is 30-35%. Right Ventricle [facility] [address] [place] [address] 2 D/M-MODE ECHOCARDIOGRAM Name: ANGELIA TERRELL Room #: 421-P [facility].#: [id number] Admission: 09/12/17 Attend Phys: Jamari Brady, Discharge: Date of : 42 Date of Service: 09/13/17 1231 Report #: [id number] Right ventricle is hypokinetic. Device lead is present in the right ventricle. Aortic Valve Bioprosthetic aortic valve is present. No aortic regurgitation is present. There is no aortic valvular stenosis. Mitral Valve The mitral valve is normal in structure. Mild to moderate mitral regurgitation. Tricuspid Valve The tricuspid valve is normal in structure. Moderate tricuspid regurgitation. Estimated PAP is 56mmHg Great Vessels IVC is normal in size and collapses >50% with inspiration. Pericardium There is no pericardial effusion. <Conclusion> The left ventricle is normal size. LVEF is 30-35%. Left ventricular systolic function is moderate to severely decreased. Right ventricle is hypokinetic. Device lead is present in the right ventricle. Bioprosthetic aortic valve is present. The mitral valve is normal in structure. Mild to moderate mitral regurgitation. There is no pericardial effusion. <ELECTRONICALLY SIGNED> By: Jose Luis Ceja MD 09/13/17 1231 1231 123 Jose Luis Ceja MD /INF
[~2017-09-12 17:13] MED LIST changes: +HYDROCODONE-AP1 EAC6 PO; -NORCO 10-325 T1 EACH PO
[2017-09-12 17:23] VITALS: BP 106/67
[2017-09-12] MEDS ORDERED: PYRIDOXINE HCL50 MG PO (17:43)
[2017-09-12] MEDS ORDERED: B12INJ IM (17:44)
[2017-09-12] MEDS ORDERED: METOLAZONE 2.52.5 MG PO (17:45)
[2017-09-12] MEDS ORDERED: NEURONTIN100 MG PO (17:46)
[2017-09-12] MEDS ORDERED: IRON325 PO (17:46)
[2017-09-12] MEDS ORDERED: IMDUR 30 MG TAB30 M1 PO (17:47)
[2017-09-12] MEDS ORDERED: BAKING SODA PO (17:48)
[2017-09-12 18:00] LABS: HEMATOCRIT 25.4 % (42.0-52.0); HEMOGLOBIN 8.6 gm/dL (14.0-18.0); MCH 28.3 pg (26.0-34.0); MCHC 33.7 g/dL (28.0-37.0); MCV 84.1 fL (80.0-100.0); PLATELET COUNT 263 thou/uL (150-400); RBC 3.02 mil/uL (4.50-6.00); RDW 17.5 % (10.5-14.5); WBC 11.4 thou/uL (4.0-11.0)
[2017-09-12 18:02] LABS: MANUAL DIFF YES
[2017-09-12 18:11] LABS: ANION GAP 8 mmol/L (7-16); BUN 36 mg/dL (7-18); CALCIUM 8.7 mg/dL (8.5-10.1); CHLORIDE 98 mmol/L (98-107); CO2 30 mmol/L (21-32); CREATININE 2.2 mg/dL (0.7-1.3); GLUCOSE 114 mg/dL (74-106); POTASSIUM 3.9 mmol/L (3.5-5.1); SODIUM 136 mmol/L (136-145)
[2017-09-12 18:20] LABS: ALBUMIN 2.8 g/dL (3.4-5.0); ALKALINE PHOSPHATASE 74 U/L (46-116); SGOT 24 U/L (15-37); SGPT 32 U/L (30-65); TOTAL BILIRUBIN 0.5 mg/dL (<0.1-1.0); TROPONIN-I < 0.04 ng/mL (<0.04-0.07)
[2017-09-12 18:34] LABS: METAMYELOCYTES 1 %; NUCLEATED RBCS 1 /100WBC; TOTAL CELL COUNT 100
[2017-09-12 18:35] LABS: ANISOCYTOSIS 1+
[2017-09-12 18:41] LABS: TOTAL PROTEIN 7.1 g/dL (6.4-8.2)
[2017-09-12 19:46] VITALS: BP 109/76
[2017-09-12 20:29] VITALS: BP 120/83
[2017-09-12 20:55] VITALS: BP 131/82
[2017-09-13 03:14] VITALS: BP 86/51
[2017-09-13 08:00] VITALS: BP 103/67
[2017-09-13 16:00] VITALS: BP 122/78
[2017-09-13 19:15] VITALS: BP 96/64
[2017-09-14 03:54] VITALS: BP 100/63
[2017-09-14 06:32] LABS: CREATININE 2.4 mg/dL (0.7-1.3); POTASSIUM 3.9 mmol/L (3.5-5.1)
[2017-09-14 07:47] VITALS: BP 84/40
[2017-09-14 17:28] VITALS: BP 111/68
[2017-09-14 20:06] VITALS: BP 111/72
[2017-09-15 03:17] VITALS: BP 92/57
[2017-09-15 04:43] LABS: HEMOGLOBIN 7.9 gm/dL (14.0-18.0); MCH 28.9 pg (26.0-34.0); MCHC 34.4 g/dL (28.0-37.0); RBC 2.74 mil/uL (4.50-6.00); RDW 17.4 % (10.5-14.5); WBC 16.6 thou/uL (4.0-11.0)
[2017-09-15 05:02] LABS: CALCIUM 8.8 mg/dL (8.5-10.1); CREATININE 2.5 mg/dL (0.7-1.3); POTASSIUM 4.3 mmol/L (3.5-5.1)
[2017-09-15 06:49] VITALS: BP 89/5
[2017-09-15 09:02] VITALS: BP 131/74
[2017-09-15 14:56] VITALS: BP 106/68
[2017-09-15 20:00] VITALS: BP 97/63
[2017-09-16 04:30] VITALS: BP 93/65
[2017-09-16 07:30] VITALS: BP 107/74
[2017-09-16 11:27] VITALS: BP 102/50
[2017-09-16 15:45] VITALS: BP 121/77
[2017-09-16 17:20] VITALS: BP 176/87
[2017-09-16 20:05] VITALS: BP 121/82
[2017-09-17 04:00] VITALS: BP 97/61
[2017-09-17 08:00] VITALS: BP 115/82
[2017-09-17 12:50] LABS: HEMATOCRIT 26.9 % (42.0-52.0); HEMOGLOBIN 9.1 gm/dL (14.0-18.0); MCH 28.9 pg (26.0-34.0); MCHC 33.8 g/dL (28.0-37.0); MCV 85.4 fL (80.0-100.0); RBC 3.15 mil/uL (4.50-6.00); RDW 18.5 % (10.5-14.5); WBC 12.6 thou/uL (4.0-11.0)
[2017-09-17 16:00] VITALS: BP 110/72
[2017-09-17 19:29] VITALS: BP 118/78
[2017-09-18 03:16] VITALS: BP 112/73
[2017-09-18 07:57] VITALS: BP 123/75
[2017-09-18 19:28] VITALS: BP 138/87
[2017-09-19 04:18] VITALS: BP 116/74
[2017-09-19 07:21] LABS: HEMATOCRIT 28.1 % (42.0-52.0); HEMOGLOBIN 9.5 gm/dL (14.0-18.0); MCH 28.9 pg (26.0-34.0); MCV 85.2 fL (80.0-100.0); RBC 3.3 mil/uL (4.50-6.00); RDW 18.2 % (10.5-14.5); WBC 11.2 thou/uL (4.0-11.0)
[2017-09-19 07:42] LABS: CALCIUM 8.6 mg/dL (8.5-10.1); CREATININE 1.9 mg/dL (0.7-1.3); POTASSIUM 3.2 mmol/L (3.5-5.1)
[2017-09-19 08:00] VITALS: BP 116/78
[2017-09-19] MEDS ORDERED: DUONEB 2.5-0.5 M3 ML INH (08:10)
[2017-09-19 09:43] VITALS: BP 126/80
[2017-09-19 11:48] VITALS: BP 126/80
== END 2017-09-19 12:38 | disposition home or self-care (01) | DRG 291 ==
LOC: ER 17:13 → EROBS 19:00 → 4E 19:00 → ENTRNSPT 09-19 12:09 → 4E 09-19 12:38
PROVIDERS: Family Medicine; Internal Medicine; Nurse Practitioner Family
DX: I13.0 Hypertensive heart and chronic kidney disease with heart failure and stage 1 through stage 4 chronic kidney disease, or unspecified chronic kidney disease (principal); I50.23 Acute on chronic systolic (congestive) heart failure; J96.20 Acute and chronic respiratory failure, unspecified whether with hypoxia or hypercapnia; N17.9 Acute kidney failure, unspecified; I47.2 Ventricular tachycardia; J44.1 Chronic obstructive pulmonary disease with (acute) exacerbation; N18.9 Chronic kidney disease, unspecified; I48.0 Paroxysmal atrial fibrillation; E11.22 Type 2 diabetes mellitus with diabetic chronic kidney disease; D50.9 Iron deficiency anemia, unspecified; I25.10 Atherosclerotic heart disease of native coronary artery without angina pectoris; N40.0 Benign prostatic hyperplasia without lower urinary tract symptoms; E03.9 Hypothyroidism, unspecified; K21.9 Gastro-esophageal reflux disease without esophagitis; I27.20 Pulmonary hypertension, unspecified; I25.5 Ischemic cardiomyopathy; Z95.2 Presence of prosthetic heart valve; Z90.49 Acquired absence of other specified parts of digestive tract; Z95.1 Presence of aortocoronary bypass graft; I25.2 Old myocardial infarction; Z95.5 Presence of coronary angioplasty implant and graft; Z98.42 Cataract extraction status, left eye; Z98.41 Cataract extraction status, right eye; Z88.8 Allergy status to other drugs, medicaments and biological substances; Z88.6 Allergy status to analgesic agent; Z91.041 Radiographic dye allergy status; Z87.891 Personal history of nicotine dependence; Z85.038 Personal history of other malignant neoplasm of large intestine; Z82.49 Family history of ischemic heart disease and other diseases of the circulatory system; Z79.82 Long term (current) use of aspirin; Z79.899 Other long term (current) drug therapy
CPT/HCPCS: 10183